=== PATIENT | male | born 1985 | race American Indian/Alaskan Native ===

== ENCOUNTER 2020-10-23 14:26 | Emergency (ER) | payer SELFPAY ==
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
[2020-10-23 14:38] VITALS: BP 125/106
== END 2020-10-23 14:35 | disposition left against medical advice (07) ==
LOC: ED 14:26
DX: R51.9 Headache, unspecified (principal); Z53.21 Procedure and treatment not carried out due to patient leaving prior to being seen by health care provider